=== PATIENT | female | born 2000 | race African-American/Black ===

== ENCOUNTER 2020-09-25 17:07 | Emergency (ER) | payer MEDICAID ==
[~2020-09-25] VITALS: Ht 170.2 cm; Wt 150.0 kg
[2020-09-25] MEDS ORDERED: PIOGLITAZONE15 MG (17:11)
[2020-09-25] MEDS ORDERED: TENORMIN25 MG (17:11)
[2020-09-25] MEDS ORDERED: LIPITOR20 MG (17:12)
[2020-09-25] MEDS ORDERED: ASPIRIN81 MG (17:12)
[2020-09-25] MEDS ORDERED: LASIX40 MG (17:12)
[2020-09-25] MEDS ORDERED: CARDURA8 MG (17:12)
[2020-09-25 17:20] VITALS: Ht 170.2 cm; Wt 150.0 kg
[2020-09-25] MEDS ORDERED: AMITRIPTYLINE100 MG PO (17:22)
[2020-09-25] MEDS ORDERED: LEXAPRO5 MG PO (17:22)
[2020-09-25] MEDS ORDERED: PROPRANOLOL HCL10 MG PO (17:22)
[2020-09-25 18:19] LABS: BASOPHILS 0.4 % (0-2); EOSINOPHILS 0.9 % (0-7); HEMATOCRIT 39.3 % (36.0-48.0); HEMOGLOBIN 12.4 g/dL (12-16); IMMATURE GRANULOCYTES 0.1 % (0-5); LYMPHOCYTE ABS# 1.39 10x3/uL (1.18-3.74); LYMPHOCYTES 16.3 % (15-50); MCH 25.1 pg (26.0-34.0); MCHC 31.6 g/dL (31.0-37.0); MCV 79.4 fL (80.0-100.0); MEAN PLATELET VOLUME 9.8 fL (7.4-10.4); MONOCYTES 9.7 % (2-11); NEUTROPHIL ABS# 6.21 10x3/uL (1.56-6.13); NEUTROPHILS 72.6 % (40-80); PLATELET COUNT 298 10x3/uL (130-400); RBC 4.95 10x6/uL (4.00-5.40); RDW 14.2 % (11.5-14.5); WBC 8.6 10x3/uL (4.8-10.8)
[2020-09-25 18:53] LABS: APTT 27.8 SECONDS (22.8-39.4); INR 1.1 (0.85-1.17); PROTIME 13.2 SECONDS (11.6-15.0)
[2020-09-25 19:23] LABS: CALC OSMOLALITY 275 mosm/kg (275-300); CALCIUM 9.4 mg/dL (8.5-10.1); CHLORIDE - SERUM 103 mmol/L (98-107); CREATININE - SERUM 0.8 mg/dL (0.6-1.3); GLUCOSE 84 mg/dL (74-106); POTASSIUM - SERUM 3.5 mmol/L (3.5-5.1); SODIUM 139 mmol/L (136-145); UREA NITROGEN 10 mg/dL (7-18); eGFR NON AFRICAN AMERICAN > 90 mL/min (90-120)
[2020-09-25 19:41] LABS: ALBUMIN 3.9 g/dL (3.4-5.0); ALKALINE PHOSPHATASE 59 U/L (30-120); ALT (SGPT) 39 U/L (10-68); BILIRUBIN - TOTAL 0.36 mg/dL (0.2-1.3); CKMB 0.1 U/L (0.0-3.6); CREATINE KINASE 62 UL (21-215); MAGNESIUM - SERUM 1.9 mg/dL (1.8-2.4); PROTEIN - SERUM 7.7 g/dL (6.4-8.2); THYROID STIMULATING HORMONE 1.08 uIU/mL (0.36-3.74); TROPONIN-I < 0.017 ng/mL (0.000-0.060)
[2020-09-25 22:01] VITALS: BP 149/96
== END 2020-09-25 22:02 | disposition home or self-care (01) ==
LOC: D.ER 17:07
PROVIDERS: Family Medicine
DX: R00.0 Tachycardia, unspecified (principal)